=== PATIENT | female | born 1935 | race Caucasian/White ===

== ENCOUNTER → 2017-12-23 | Day surgery (SDC) | payer MEDICARE ==
[2017-12-17 11:19] LABS: BASOPHILS # (AUTO) 0.1 (0.0-0.1); BASOPHILS % 0.7 % (0.0-1.0); EOSINOPHILS # (AUTO) 0.6 (0.0-0.4); EOSINOPHILS % 6.3 % (0.0-6.0); HEMATOCRIT 43.5 % (34.2-44.1); HEMOGLOBIN 14.4 g/dL (12.0-16.0); LYMPHOCYTES # (AUTO) 2.7 (1.0-3.2); LYMPHOCYTES % 27.1 % (18.0-39.1); MEAN CORPUSCULAR HEMOGLOBIN 33.1 pg (28-32); MEAN CORPUSCULAR HGB CONC 33.1 g/dL (31-35); MONOCYTES # (AUTO) 1.1 (0.2-0.8); MONOCYTES % 10.7 % (4.4-11.3); NEUTROPHILS # (AUTO) 5.5 (2.1-6.9); NEUTROPHILS % 54.6 % (38.7-80.0); PLATELET COUNT 273 x10e3/uL (140-360); RED BLOOD COUNT 4.35 x10e6/uL (3.6-5.1); RED CELL DISTRIBUTION WIDTH 12.9 % (11.7-14.4)
[~2017-12-23] MED LIST: ASPIR 8181 MG PO; CALCIUM 1,0001 EACH PO; CLOTRIMAZOLE-BE15 GM TOP; FENTANYL CITRATE/PF 100MCG/2 ML INJ ONE; FLONASE; LASIX20 MG PO; LIDOCAINE HCL 2% LOCAL INJ 5 ML SDV VIAL INJ ONE; MAGNESIUM PO; MIDAZOLAM HCL 2 MG/2 ML VIAL ONE; NIACIN500 M1 PO; PROPOFOL IV EMULSION 10 MG/ML 50 ML VIAL ONE; SYMBICORT 16010.2 GM INH; SYNTHROID100 MCG PO; TOVIAZ4 MG PO; VITAMIN C PO; VITAMIN D31000 UNI1 PO
--- NOTE | 2017-12-23 13:31 | Operative Report ---
DATE OF PROCEDURE: December 23, 2017 REFERRING PHYSICIAN: Dr. Jus Chavira PROCEDURE PERFORMED: Esophagogastroduodenoscopy with esophageal dilatation. INDICATIONS FOR PROCEDURE: Dysphagia. MEDICATION: Patient was done under MAC. Please see anesthesiologist's note. PROCEDURE: With the patient in the left lateral decubitus position, the flexible fiberoptic Olympus gastroscope was introduced into the esophagus under direct visualization without any difficulty. The esophagus appeared to be within normal limits. There was a mild stricture noted at the GE junction that was dilated to size 50-British Cope. The scope was then advanced with ease into the stomach. The mucosa overlying the antrum and the body revealed some diffuse erythema and moderate edema, and biopsies were obtained and sent to stain for H. pylori. The pylorus was of normal contour and shape. It was intubated with ease, and the scope was advanced all the way to the 2nd portion of the duodenum. The scope was then withdrawn slowly. Mucosa overlying the proximal 2nd portion and the duodenal bulb appeared to be within normal limits. The scope was then withdrawn back into the stomach and retroflexed, and the mucosa overlying the fundus and the cardia appeared to be within normal limits. The scope was then straightened out. The scope was subsequently withdrawn. Patient tolerated the procedure well. IMPRESSION 1. Distal esophagitis, mild. 2. 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 3. Gastritis, biopsied. Biopsies sent to stain for H. pylori. PLAN: Follow up histology. Initiate Protonix 40 mg 1 p.o. q.a.m. a.c. Job#: [id number] cc:JUS CHAVIRA DO
== END | disposition home or self-care (01) ==
LOC: OR 09:51
PROVIDERS: ATTEND Internal Medicine Gastroenterology
CPT/HCPCS: 36415; 43239; 43450; 85025; 93005; J2001; J2250

== ENCOUNTER → 2018-01-18 | Outpatient (CLI) | payer MEDICARE ==
[~2018-01-18] MED LIST changes: -FENTANYL CITRATE/PF 100MCG/2 ML INJ ONE; -LIDOCAINE HCL 2% LOCAL INJ 5 ML SDV VIAL INJ ONE; -MIDAZOLAM HCL 2 MG/2 ML VIAL ONE; -PROPOFOL IV EMULSION 10 MG/ML 50 ML VIAL ONE
--- NOTE | 2018-01-18 12:52 | Diagnostic Imaging Report ---
PROCEDURE:US RETROPERITONEAL (KIDNEY). COMPARISON:None. INDICATIONS:UTI TECHNIQUE:Blount scale and color Doppler ultrasound kidney FINDINGS: Right kidney: 8.9 x 5.2 x 5.4 cm. Cortical thickness 1.8 cm Left kidney: 10.2 x 4.9 x 4.6 cm. Cortical thickness 2.1 cm Both kidneys are normal. Survey views of the urinary bladder are normal. Patent ureters. CONCLUSION: Normal renal ultrasound. Dictated by: Shimon Pierre M.D. on 01/18/2018 at 12:54 Electronically approved by: Shimon Pierre M.D. on 01/18/2018 at 12:54
== END ==
LOC: US 12:04
PROVIDERS: ATTEND Urology
DX: N39.0 Urinary tract infection, site not specified (principal)
CPT/HCPCS: 76770

== ENCOUNTER → 2018-03-02 | Outpatient (CLI) | payer MEDICARE ==
--- NOTE | 2018-03-02 12:59 | Diagnostic Imaging Report ---
PROCEDURE:X-RAY MODIFIED BARIUM SWALLOW COMPARISON:None. INDICATIONS:Not provided. DISCUSSION:Fluoroscopic examination was performed in conjunction with speech pathology, during swallowing of a variety of thin and thick liquid consistencies. CONCLUSION:No penetration or aspiration. Please see the report from speech pathology for complete details. Dictated by: Jus Chakraborty M.D. on 03/02/2018 at 13:04 Electronically approved by: Jus Chakraborty M.D. on 03/02/2018 at 13:04
== END ==
LOC: DX 10:43
PROVIDERS: ATTEND Internal Medicine Gastroenterology
DX: R13.10 Dysphagia, unspecified (principal)
CPT/HCPCS: 74230; 92611; G8996; G8997; G8998

== ENCOUNTER → 2018-05-04 | Day surgery (SDC) | payer MEDICARE ==
[2018-05-02 13:09] LABS: BASOPHILS # (AUTO) 0.1 (0.0-0.1); BASOPHILS % 0.7 % (0.0-1.0); EOSINOPHILS # (AUTO) 0.7 (0.0-0.4); EOSINOPHILS % 6.2 % (0.0-6.0); HEMATOCRIT 45.8 % (34.2-44.1); HEMOGLOBIN 14.9 g/dL (12.0-16.0); LYMPHOCYTES # (AUTO) 3.9 (1.0-3.2); LYMPHOCYTES % 37.1 % (18.0-39.1); MEAN CORPUSCULAR HEMOGLOBIN 33.5 pg (28-32); MEAN CORPUSCULAR HGB CONC 32.5 g/dL (31-35); MEAN CORPUSCULAR VOLUME 102.9 fL (81-99); MONOCYTES # (AUTO) 1.3 (0.2-0.8); MONOCYTES % 12.1 % (4.4-11.3); NEUTROPHILS # (AUTO) 4.6 (2.1-6.9); NEUTROPHILS % 43.5 % (38.7-80.0); PLATELET COUNT 239 x10e3/uL (140-360); RED BLOOD COUNT 4.45 x10e6/uL (3.6-5.1); RED CELL DISTRIBUTION WIDTH 13.3 % (11.7-14.4)
[2018-05-02 13:30] LABS: ANION GAP 14.1 mmol/L (8-16); BLOOD UREA NITROGEN 11 mg/dL (7-26); BUN/CREATININE RATIO 13 (6-25); CARBON DIOXIDE 27 mmol/L (22-29); CHLORIDE 102 mmol/L (98-107); CREATININE, SERUM 0.85 mg/dL (0.57-1.11); EST GLOMERULAR FILTRATION RATE > 60 ML/MIN (60-); GLUCOSE 105 mg/dL (74-118); POTASSIUM 4.1 mmol/L (3.5-5.1); SODIUM 139 mmol/L (136-145)
--- NOTE | 2018-05-02 13:36 | Diagnostic Imaging Report ---
EXAMINATION: CHEST 2 VIEWS INDICATION: \S\PER PROTOCOL \S\PRE ADMIT COMPARISON: None FINDINGS: PA and lateral views TUBES and LINES: None. LUNGS: Lungs are well inflated. There is no evidence of pneumonia. Bibasilar subsegmental atelectasis or scarring. Mildly elevated right hemidiaphragm. PLEURA: No pleural effusion or pneumothorax. HEART AND MEDIASTINUM: The cardiomediastinal silhouette is unremarkable. BONES AND SOFT TISSUES: No acute osseous lesion. Soft tissues are unremarkable. UPPER ABDOMEN: No free air under the diaphragm. Right upper quadrant colonic interposition. IMPRESSION: Mild bibasilar subsegmental atelectasis or scarring. No definite focal consolidation. Signed by: Dr. Reyes Alexander MD on 05/02/2018 1:32 PM
[~2018-05-04] MED LIST changes: +CEFTRIAXONE SOD 1 GM VIAL ONE; +CRANBERRY400 MG PO; +IOPAMIDOL 300MG/ML 50ML INFUS..BTL IV ONE; +LIDOCAINE HCL 2% LOCAL INJ 5 ML SDV VIAL INJ ONE; +LOTRISONE CREAM15 GM TOP; +MONISTAT 11 EACH TOP; +MUCINEX DM ER1 EACH PO; +PROPOFOL IV EMULSION 10 MG/ML 20 ML VIAL ONE; +SEVOFLURANE INHAL SOLN 250 ML PEN BTL ONE
[2018-05-04 14:30] VITALS: BP 136/57
--- NOTE | 2018-05-05 12:38 | Operative Report ---
DATE OF PROCEDURE: May 04, 2018 PREOPERATIVE DIAGNOSES 1. Multiple chronic urinary tract infections. 2. Clinical signs and symptoms of interstitial cystitis. POSTOPERATIVE DIAGNOSES 1. Multiple chronic urinary tract infections. 2. Clinical signs and symptoms of interstitial cystitis. PROCEDURES 1. Cystourethroscopy with hydrodistention (entirely separate procedure for clinical symptoms of interstitial cystitis without hematuria). 2. Cystourethroscopy with left ureter catheterization and left retrograde pyelogram (separate procedure for multiple chronic urinary tract infections). 3. Cystourethroscopy with right ureter catheterization and right retrograde pyelogram (separate procedure for multiple chronic urinary tract infections). 4. Supervision of fluoroscopy. 5. Interpretation of retrograde pyelography. ANESTHESIA: General. ESTIMATED BLOOD LOSS: Minimal. COMPLICATIONS: None. INDICATIONS: Ms. Cross is a very pleasant 51-year-old female with multiple chronic urinary tract infections. She and I had a long discussion about alternatives, risks and benefits including doing nothing, cystoscopy, IVP, retrograde pyelograms, and renal ultrasound. She voiced understanding of the options, alternatives, risks and benefits and elected to proceed. PROCEDURE IN DETAIL: After informed consent was obtained, the patient was taken to the operative suite and placed supine in the operating table and underwent general anesthesia by the anesthesia service. She was placed in the dorsal lithotomy position, and sterilely prepped and draped in the standard fashion for cystoscopy. Grade II to III cystocele was noted with no masses. The urethra was catheterized and panendoscopy of the bladder revealed no tumors and no stones. Both ureteral orifices were in their normal anatomic location and position and were seen to efflux clear urine. Hydrodistention was performed, which revealed a capacity of 800 mL, no glomerulations and no Hunner's ulcers. Bilateral retrograde pyelograms were performed, which were normal. The bladder was drained. The patient was awakened from anesthesia and transported to the recovery room in excellent condition. SUPERVISION OF FLUOROSCOPY, INTERPRETATION OF RETROGRADE PYELOGRAPHY: I was present throughout the entire procedure and supervised the use of fluoroscopy. There was no radiologist present at any time during this procedure. Attention was turned toward the left and right ureteral orifices, which were catheterized with an 8-Wallisian cone-tipped catheter in a retrograde fashion. Contrast was injected revealing delicate ureters, delicate pelvicaliceal systems. No evidence of filling defects and no evidence of hydronephrosis. IMPRESSION: Normal retrograde pyelograms. Job#: [id number] TRACEY
== END | disposition home or self-care (01) ==
LOC: OR 10:42
PROVIDERS: ATTEND Urology
DX: N39.0 Urinary tract infection, site not specified (principal); N81.10 Cystocele, unspecified; R35.1 Nocturia; R39.14 Feeling of incomplete bladder emptying; I10 Essential (primary) hypertension; Z01.810 Encounter for preprocedural cardiovascular examination; Z01.812 Encounter for preprocedural laboratory examination; Z01.818 Encounter for other preprocedural examination; Z88.8 Allergy status to other drugs, medicaments and biological substances; Z79.82 Long term (current) use of aspirin; Z68.32 Body mass index [BMI] 32.0-32.9, adult
CPT/HCPCS: 36415; 52005; 71046; 74420; 80048; 85025; 93005; C1758; J0696; J2001; Q9967

== ENCOUNTER → 2018-08-05 | Day surgery (SDC) | payer MEDICARE ==
--- NOTE | 2018-08-01 13:35 | Diagnostic Imaging Report ---
EXAMINATION: PA and lateral views of the chest. COMPARISON: May 02, 2018 CLINICAL HISTORY: Preoperative evaluation for sacrospinous surgery DISCUSSION: Lines/tubes: None. Lungs: The lungs are well inflated and clear. No pneumonia or pulmonary edema. Pleura: No pleural effusion or pneumothorax. Heart and mediastinum: The cardiomediastinal silhouette is normal. Bones and soft tissues: No acute bony abnormalities. IMPRESSION: No acute cardiopulmonary abnormalities. Signed by: Dr. Arthur Mcmanus M.D. on 08/01/2018 1:31 PM
[2018-08-01 13:36] LABS: BASOPHILS # (AUTO) 0.1 (0.0-0.1); BASOPHILS % 0.8 % (0.0-1.0); EOSINOPHILS # (AUTO) 0.2 (0.0-0.4); EOSINOPHILS % 2.9 % (0.0-6.0); HEMATOCRIT 45.5 % (34.2-44.1); HEMOGLOBIN 15.1 g/dL (12.0-16.0); LYMPHOCYTES # (AUTO) 2.6 (1.0-3.2); LYMPHOCYTES % 30.6 % (18.0-39.1); MEAN CORPUSCULAR HEMOGLOBIN 33.6 pg (28-32); MEAN CORPUSCULAR HGB CONC 33.2 g/dL (31-35); MEAN CORPUSCULAR VOLUME 101.3 fL (81-99); MONOCYTES # (AUTO) 0.8 (0.2-0.8); MONOCYTES % 9.8 % (4.4-11.3); NEUTROPHILS # (AUTO) 4.6 (2.1-6.9); NEUTROPHILS % 55.7 % (38.7-80.0); PLATELET COUNT 183 x10e3/uL (140-360); RED BLOOD COUNT 4.49 x10e6/uL (3.6-5.1); RED CELL DISTRIBUTION WIDTH 12.7 % (11.7-14.4)
[~2018-08-05] MED LIST changes: +BUPIVACAINE 0.25%/EPI 30ML SDV INJ ONE; +CEFAZOLIN SOD 2 GM/D5W 50ML 50 ML IV ONE; -CEFTRIAXONE SOD 1 GM VIAL ONE; +DEXAMETHASONE SOD PHOS INJ 4 MG/ML VIAL ONE; +ESTROGENS CONJUGATED VAGINAL CR 45 GM TUBE PV ONE; +FENTANYL CITRATE/PF 100MCG/2 ML INJ ONE; -IOPAMIDOL 300MG/ML 50ML INFUS..BTL IV ONE; +IPRATROPIUM INH; +KETOROLAC TROMETHAMINE 30 MG/ML VIAL ONE; +MEPERIDINE HCL INJ 50 MG/ML INJ ONE; +ONDANSETRON HCL INJ 2 MG/ML VIAL ONE; +RANITIDINE HCL300 MG; +ROCURONIUM BROMIDE 10 MG/ML 5ML VIAL ONE
--- NOTE | 2018-08-05 10:57 | Operative Report ---
DATE OF PROCEDURE: August 05, 2018 PREOPERATIVE DIAGNOSIS: Sacral spinous collapse. POSTOPERATIVE DIAGNOSIS: Sacral spinous collapse. PROCEDURE: Posterior repair of sacral spinous colpopexy. RN TRANSITIONAL: Dr. Deluca COMPLICATIONS: None. ESTIMATED BLOOD LOSS: 20 mL. The patient was taken to the OR and anesthesia was established. Prepped and draped in a sterile fashion, and placed in the dorsal lithotomy position. After examination under anesthesia, a clamp applied at the mucocutaneous junction. The skin in between was cut using curved Garcia scissors. The vagina was dissected off the rectum using Metzenbaum scissors using a push-pull technique and opened in the midline using the same instruments. Two flaps of the vagina was dissected off the underlying muscles using both sharp and blunt dissection. All the way up to the vagina, the was opened all the way up to the vaginal fold. Following this, pelvic floor was pierced with an index finger. The sacral spinous ligament was palpated using the catheter chris. A black Vicryl suture was placed in the sacral spinous ligament on both sides, and the other end was passed into the vaginal vault and elevated on each side and were approximated using Vicryl 2-0. The excess vaginal skin was trimmed off using curved Garcia scissors. The vagina was closed with interlocking stitches of Vicryl 2-0 sutures. The perineum muscles were approximated using Vicryl 2-0. The skin was closed with subcutaneous Vicryl 2-0. The vaginal vault was lifted after tying the sacral spinous ligaments. The sutures were tied, and the vaginal vault was lifted. Vaginal pack and Ramirez catheter was placed inside the bladder for drainage. The patient tolerated the procedure well. Lap and needle counts were correct times 2 at the end of the procedure. Job#: [id number] MN
[2018-08-05 14:00] VITALS: BP 130/71
== END | disposition home or self-care (01) ==
LOC: OR 06:23
PROVIDERS: ATTEND Obstetrics & Gynecology
DX: N99.3 Prolapse of vaginal vault after hysterectomy (principal); N76.1 Subacute and chronic vaginitis; Z01.810 Encounter for preprocedural cardiovascular examination; Z01.812 Encounter for preprocedural laboratory examination; Z01.818 Encounter for other preprocedural examination; Z88.8 Allergy status to other drugs, medicaments and biological substances
CPT/HCPCS: 36415; 57282; 71046; 85025; 93005; J0690; J1100; J1885; J2001; J2175; J2405; J2704

== ENCOUNTER 2018-10-15 10:50 | Inpatient (IN) | payer MEDICARE ==
[~2018-10-15] VITALS: Ht 160 cm; Wt 92.1 kg
[~2018-10-15 10:50] MED LIST changes: -BUPIVACAINE 0.25%/EPI 30ML SDV INJ ONE; -CEFAZOLIN SOD 2 GM/D5W 50ML 50 ML IV ONE; -DEXAMETHASONE SOD PHOS INJ 4 MG/ML VIAL ONE; -ESTROGENS CONJUGATED VAGINAL CR 45 GM TUBE PV ONE; -FENTANYL CITRATE/PF 100MCG/2 ML INJ ONE; -KETOROLAC TROMETHAMINE 30 MG/ML VIAL ONE; -LIDOCAINE HCL 2% LOCAL INJ 5 ML SDV VIAL INJ ONE; -MEPERIDINE HCL INJ 50 MG/ML INJ ONE; -ONDANSETRON HCL INJ 2 MG/ML VIAL ONE; -PROPOFOL IV EMULSION 10 MG/ML 20 ML VIAL ONE; -ROCURONIUM BROMIDE 10 MG/ML 5ML VIAL ONE; -SEVOFLURANE INHAL SOLN 250 ML PEN BTL ONE
--- NOTE | 2018-10-15 11:00 | NUR ---
REC'D PT IN RM 2 VIA EMS; S/P FALL ON A WET SURFACE. PLACED ON THE MONITOR. V.S.S. ABLE TO MAKE NEEDS KNOWN.
[2018-10-15] MEDS ORDERED: ASPIRIN 81 MG CHEW TAB PO ONE (11:15)
[2018-10-15 11:39] LABS: BASOPHILS # (AUTO) 0.1 (0.0-0.1); BASOPHILS % 0.6 % (0.0-1.0); EOSINOPHILS # (AUTO) 0.5 (0.0-0.4); EOSINOPHILS % 5.1 % (0.0-6.0); HEMATOCRIT 41.4 % (34.2-44.1); HEMOGLOBIN 13.9 g/dL (12.0-16.0); LYMPHOCYTES # (AUTO) 2.8 (1.0-3.2); LYMPHOCYTES % 28.7 % (18.0-39.1); MEAN CORPUSCULAR HGB CONC 33.6 g/dL (31-35); MEAN CORPUSCULAR VOLUME 98.3 fL (81-99); MONOCYTES # (AUTO) 1.1 (0.2-0.8); MONOCYTES % 11.8 % (4.4-11.3); NEUTROPHILS # (AUTO) 5.1 (2.1-6.9); NEUTROPHILS % 53.4 % (38.7-80.0); PLATELET COUNT 243 x10e3/uL (140-360); RED BLOOD COUNT 4.21 x10e6/uL (3.6-5.1); RED CELL DISTRIBUTION WIDTH 12.6 % (11.7-14.4)
[2018-10-15 11:50] LABS: INR 0.98; PARTIAL THROMBOPLASTIN TIME 25.7 seconds (23.8-35.5); PROTHROMBIN TIME 13.9 seconds (11.9-14.5)
[2018-10-15 11:56] LABS: ALANINE AMINOTRANSFERASE 8 IU/L (0-55); ALBUMIN 3.1 g/dL (3.5-5.0); ALBUMIN/GLOBULIN RATIO 0.7 (0.8-2.0); ALKALINE PHOSPHATASE 72 IU/L (40-150); ANION GAP 11.9 mmol/L (8-16); BLOOD UREA NITROGEN 11 mg/dL (7-26); BUN/CREATININE RATIO 13 (6-25); CALCIUM 9.4 mg/dL (8.4-10.2); CARBON DIOXIDE 30 mmol/L (22-29); CHLORIDE 101 mmol/L (98-107); CREATINE KINASE 154 IU/L (29-168); CREATININE, SERUM 0.87 mg/dL (0.57-1.11); EST GLOMERULAR FILTRATION RATE > 60 ML/MIN (60-); GLUCOSE 102 mg/dL (74-118); POTASSIUM 3.9 mmol/L (3.5-5.1); SODIUM 139 mmol/L (136-145)
--- NOTE | 2018-10-15 12:14 | Diagnostic Imaging Report ---
Left hip radiographs - 2 views; AP radiograph of the pelvis - 1 view History: Status post fall. Findings: There is a displaced left proximal femoral intertrochanteric fracture. There is approximately 1.7 cm of lateral displacement laterally. No definite extension into the femoral head. The femoro-acetabular alignment is maintained. AP radiograph of the pelvis demonstrates mild degenerative changes of bilateral hip. No evidence of additional acute fracture. No evidence of dislocation. There is diffuse osteopenia. Bowel gas partially obscures visualization of the sacrum. IMPRESSION: Displaced left proximal femoral intertrochanteric fracture. Signed by: Dr. Ty Castle MD on 10/15/2018 12:10 PM
[2018-10-15] MEDS ORDERED: FENTANYL CITRATE/PF 100MCG/2 ML INJ IV NR (12:15)
--- NOTE | 2018-10-15 12:15 | Diagnostic Imaging Report ---
CT CERVICAL SPINE WO HISTORY: Fall COMPARISON: None. TECHNIQUE: CT of the cervical spine without contrast. Sagittal and coronal reformations were created. One or more of the following dose reduction techniques were used: Automated exposure control, adjustment of the mA and/or kV according to patient size, and/or utilization of iterative reconstruction technique. FINDINGS: Mild bone demineralization limits evaluation. Cervical lordosis is slightly straightened. There is no scoliosis or subluxation. No definite acute fracture or compression deformity is seen. The craniocervical junction is intact. No gross spinal canal masses are seen. The paravertebral and paraspinal soft tissues are unremarkable. Mild to moderate multilevel spondylotic changes are most prominent at C5-C6 and C6-C7. Prominent atlantoaxial arthrosis is present as well. Prominent multilevel bilateral facet arthrosis is also present. There is scarring in the lung apices. The thyroid gland is atrophic. Moderate bilateral carotid bulb calcifications are present. Carotid siphon calcification is partially visualized. IMPRESSION: 1. No acute osseous abnormalities. 2. Mild to moderate multilevel spondylosis, most prominent at C5-C6 and C6-C7. Signed by: Dr. Jefry Pisano M.D. on 10/15/2018 12:12 PM
--- NOTE | 2018-10-15 12:27 | Diagnostic Imaging Report ---
EXAMINATION: CHEST SINGLE (NOT PORTABLE) INDICATION: Status post fall, left hip fracture. COMPARISON: Chest radiograph 08/01/2018. FINDINGS: TUBES and LINES: None. LUNGS: Low lung volumes with perihilar interstitial opacity. Mild patchy opacity at the lung bases. No evidence of lobar consolidation. PLEURA: No pleural effusion or pneumothorax. HEART AND MEDIASTINUM: The cardiomediastinal silhouette is unremarkable. BONES AND SOFT TISSUES: No acute osseous abnormality. UPPER ABDOMEN: No free air under the diaphragm. IMPRESSION: Low lung volumes with central vascular congestion. Bilateral interstitial opacities could reflect mild interstitial edema or low lung volumes. Patchy opacities at the lung bases, likely atelectasis. Signed by: Dr. Ty Castle MD on 10/15/2018 12:24 PM
[2018-10-15] MEDS ORDERED: SODIUM CHLORIDE FLUSH 10 ML SYR INJ PRN (13:00)
[2018-10-15] MEDS ORDERED: FUROSEMIDE 20 MG TAB PO PRN (14:00)
[2018-10-15] MEDS ORDERED: BETAMETHASONE/CLOTRIMAZOLE CR 15 GM TUBE TOP PRN (14:00)
[2018-10-15 14:48] LABS: CLARITY,URINE SL CLOUDY (CLEAR); COLOR,URINE YELLOW (YELLOW); LEUKOCYTE ESTERASE ,URINE TRACE (NEGATIVE)
[2018-10-15 14:49] LABS: BILIRUBIN,URINE NEGATIVE (NEGATIVE); KETONES,URINE NEGATIVE (NEGATIVE); NITRITE,URINE POSITIVE (NEGATIVE); PROTEIN,URINE DIPSTICK TRACE (NEGATIVE); URINE UROBILINOGEN 0.2 mg/dL (0.2 - 1)
[2018-10-15 15:09] LABS: BACTERIA,URINE MANY /HPF; EPITHELIAL CELLS,URINE MODERATE /LPF; RBC,URINE 0-5 /HPF (0-5); WBC,URINE (MAN) 21-50 /HPF (0-5)
--- NOTE | 2018-10-15 15:45 | NUR ---
RECEIVED PATIENT FROM ER. PATIENT A/O X3, EVEN RESPIRATIONS ON RA. BOWEL SOUNDS ACTIVE, SKIN INTACT, 2+ PITTING EDEMA BLE. RIGHT AC 20 GAUGE IV SL. BUCKS TRACTION IN PLACE WITH 5 POUNDS. SCD'S ON RIGHT LEG. FAITH IN PLACE WITH CLEAR YELLOW URINE. PATIENT ON COMPLETE BEDREST AT THIS TIME BUT WAS AMBULATORY BEFORE FALL. FAMILY AT BEDSIDE AT THIS TIME. CALL LIGHT IN REACH, SIDE RAILS UP X2, BED IN LOWEST POSITION, WHEELS LOCKED. WILL CONTINUE TO MONITOR.
[2018-10-15 16:18] VITALS: BP 141/63
[2018-10-15 16:42] VITALS: BP 141/63
[2018-10-15] MEDS: BUDESONIDE/FORMOTEROL 160/4.5MCG INHALER INH SCH ×2 (17:00→19:00)
[2018-10-15] MEDS: FAMOTIDINE 20 MG TAB PO SCH (17:43)
[2018-10-15 17:45] VITALS: BP 141/63
[2018-10-15] MEDS: ONDANSETRON HCL INJ 2MG/ML 2ML 2 MG/ML VIAL IV PRN (18:22)
[2018-10-15] MEDS: HYDROMORPHONE 2MG/ML 2 MG/ML ML IV PRN (18:23)
[2018-10-15 20:00] VITALS: BP 119/56
[2018-10-16] VITALS (7 sets, daily range): BP systolic 92–133; BP diastolic 41–68
--- NOTE | 2018-10-16 00:56 | History and Physical ---
CHIEF COMPLAINT: Ms. Genao is a pleasant 83-year-old woman, who presented to the emergency room today after falling down on her side walker at home. HISTORY OF PRESENT ILLNESS: The patient reports that she nearly slipped, she did not pass out or have any other problem, and that her left leg hurt. PAST MEDICAL HISTORY: Significant for hypothyroidism and skin cancer. She had multiple procedures performed at [facility] in 2018, including partial hysterectomy, upper endoscopy, cystoscopy. MEDICATIONS: Her recent home medications have been, aspirin 81 mg daily, Symbicort inhaler, calcium carbonate, vitamin D, Toviaz 4 mg every 24 hours, furosemide 20 mg daily, levothyroxine 100 mcg daily, Monistat cream, niacin, and ranitidine 300 mg daily. PERSONAL AND SOCIAL HISTORY: Negative. FAMILY HISTORY: Not relevant. PHYSICAL EXAMINATION: GENERAL: At this time shows a woman, who is 5 feet 3 inches tall and weighing 165 pounds. VITAL SIGNS: Afebrile, blood pressure 167/70. HEAD, EYES, EARS, NOSE, AND THROAT: Unremarkable. NECK: No jugular venous distention. THORAX: Heart sounds S1 and S2 are equal. No murmurs. LUNGS: Clear. ABDOMEN: Protuberant. EXTREMITIES: No cyanosis, clubbing, or edema. RADIOGRAPHS: EKG shows sinus rhythm of PVCs. X-ray shows displaced left proximal femoral fracture. LABORATORY STUDIES: Unrevealing. ASSESSMENT: 1. Displaced left proximal femoral fracture. 2. Fall. 3. Hypothyroidism. PLAN: The patient will be admitted and have Orthopedic consultation, and further management will be based on clinical course. MD DAVID Joshi/JUVENAL /[id number] cc: Jus Mae DO
[2018-10-16] MEDS: HYDROMORPHONE 2MG/ML 2 MG/ML ML IV PRN ×3 (01:53→17:43)
[2018-10-16] MEDS: LEVOTHYROXINE SODIUM 100 MCG TAB PO SCH (05:17)
--- NOTE | 2018-10-16 05:46 | NUR ---
PT OFFERED WATER SEVERAL TIMES, BUT ONLY DRINK A TOTAL OF 60ML.
[2018-10-16 06:06] LABS: BASOPHILS # (AUTO) 0.1 (0.0-0.1); BASOPHILS % 0.7 % (0.0-1.0); EOSINOPHILS # (AUTO) 0.2 (0.0-0.4); HEMATOCRIT 40.9 % (34.2-44.1); HEMOGLOBIN 13.2 g/dL (12.0-16.0); LYMPHOCYTES # (AUTO) 1.8 (1.0-3.2); LYMPHOCYTES % 19.8 % (18.0-39.1); MEAN CORPUSCULAR HGB CONC 32.3 g/dL (31-35); MEAN CORPUSCULAR VOLUME 102.3 fL (81-99); MONOCYTES # (AUTO) 1.4 (0.2-0.8); MONOCYTES % 15.3 % (4.4-11.3); NEUTROPHILS # (AUTO) 5.5 (2.1-6.9); NEUTROPHILS % 61.7 % (38.7-80.0); PLATELET COUNT 216 x10e3/uL (140-360); RED CELL DISTRIBUTION WIDTH 12.7 % (11.7-14.4)
[2018-10-16 06:17] LABS: INR 1.04; PROTHROMBIN TIME 14.5 seconds (11.9-14.5)
[2018-10-16 06:27] LABS: ANION GAP 12.4 mmol/L (8-16); CALCIUM 8.9 mg/dL (8.4-10.2); CREATININE, SERUM 1.11 mg/dL (0.57-1.11); POTASSIUM 4.4 mmol/L (3.5-5.1)
[2018-10-16] MEDS: BUDESONIDE/FORMOTEROL 160/4.5MCG INHALER INH SCH ×2 (07:00→19:00)
--- NOTE | 2018-10-16 07:33 | NUR ---
Received patient and walking rounds complete. Patient asleep in bed at this time, no signs of distress. Call light in reach, will continue to monitor.
[2018-10-16] MEDS: FAMOTIDINE 20 MG TAB PO SCH ×2 (07:59→17:19)
[2018-10-16] MEDS: CHOLECALCIFEROL 1,000 UNIT TAB PO SCH (07:59)
--- NOTE | 2018-10-16 10:05 | NUR ---
Patient A/O X3, even respirations on 2LNC. Bowel sounds hypoactive, skin intact, 1+ pitting edema in BLE. [place] traction in place on left leg. Right AC 20 gauge IV SL. SCD on right leg. Call light in reach, will continue to monitor.
[2018-10-16] MEDS: ONDANSETRON HCL INJ 2MG/ML 2ML 2 MG/ML VIAL IV PRN ×2 (13:04→17:43)
--- NOTE | 2018-10-16 13:30 | NUR ---
Order for IV fluids due to low urine output.
[2018-10-16] MEDS: SODIUM CHLORIDE 0.9% 1000ML 1,000 ML IV SCH ×3 (14:01→22:55)
--- NOTE | 2018-10-16 17:24 | Consultation ---
DATE OF CONSULTATION: 10/16/2018 CHIEF COMPLAINT: Left hip pain. HISTORY OF PRESENT ILLNESS: This patient is a pleasant 83-year-old female, who suffered a fall yesterday at her home. The patient states that prior to the fall she used a walker to get around. She states that she does not get out much, but is able to get around her home. She states she lives alone. She states she gets assistance from her son and daughter. PAST MEDICAL HISTORY: See H and P. SOCIAL HISTORY: The patient denies smoking or drinking. ALLERGIES: HYDRALAZINE AND INDOMETHACIN. MEDICATIONS: See MAR. PHYSICAL EXAMINATION: GENERAL: This is an elderly female, who is in no apparent distress. She is awake, alert, and oriented appropriately. EXTREMITIES: Her left lower extremity is in Bear's traction. The leg is shortened and internally rotated. She has pain with any attempts of passive range of motion. Distal motor and sensory exams in the left ankle are grossly intact. IMAGING DATA: X-rays of the left hip show a displaced intertrochanteric hip fracture. ASSESSMENT AND PLAN: This is an 83-year-old female with a left hip fracture. The findings and options were discussed with the patient. She was a limited ambulator prior to the fall. She would like to do everything she can to regain her ambulatory status. The risks and benefits of a closed reduction with placement of intramedullary hip screw were discussed. The patient states she understands and wish to proceed. We will get her on the schedule for surgery tomorrow. VANI Watt/JUVENAL /[id number]
[2018-10-17] VITALS: BP 124/61
[2018-10-17 04:00] VITALS: BP 113/54
[2018-10-17] MEDS: SODIUM CHLORIDE 0.9% 1000ML 1,000 ML IV SCH ×4 (05:30→23:24)
[2018-10-17] MEDS: LEVOTHYROXINE SODIUM 100 MCG TAB PO SCH (06:00)
[2018-10-17] MEDS: HYDROMORPHONE 2MG/ML 2 MG/ML ML IV PRN (06:29)
[2018-10-17] MEDS: BUDESONIDE/FORMOTEROL 160/4.5MCG INHALER INH SCH ×2 (07:00→21:00)
[2018-10-17] MEDS: FAMOTIDINE 20 MG TAB PO SCH ×2 (07:30→17:30)
[2018-10-17 08:32] VITALS: BP 102/47
--- NOTE | 2018-10-17 08:48 | NUR ---
PT OPENS EYES TO VOICE, MADE AWARE THAT SHE IS ABOUT TO GO TO SURGERY, PT SHAKES HEAD, PT WHEELED OFF UNIT VIA BED FOR SURGERY, FAMILY AT SIDE
[2018-10-17] MEDS: CHOLECALCIFEROL 1,000 UNIT TAB PO SCH (09:00)
[2018-10-17] MEDS ORDERED: CEFAZOLIN SOD 1 GM/NS 50ML 100 ML IV ONE (10:00)
--- NOTE | 2018-10-17 12:15 | NUR ---
BACK IN ROOM VIA BED, AWAKENS TO VOICE AND IMMEDIATELY CLOSES EYES, DRESSINGS CDI TO LEFT HIP, FAITH TO BSD WITH SCANT AMOUNT OF YELLOW URINE, CALL LIGHT WITHIN REACH, FAMILY AT SIDE
[2018-10-17 12:34] VITALS: BP 128/58
--- NOTE | 2018-10-17 12:59 | NUR ---
PT POST OP AND EXTREMELY DROWSEY DTR AT BEDSIDE EXPLAINED IMM, SIGNED BY DTR AND PLACED IN CHART COPY TO PT IN CARE TRANSITIONS FOLDER
[2018-10-17] MEDS ORDERED: KETOROLAC TROMETHAMINE 30 MG/ML VIAL IV PRN ×2 (13:30→13:45)
[2018-10-17] MEDS ORDERED: DOCUSATE SODIUM 100 MG CAP PO PRN (13:30)
[2018-10-17] MEDS ORDERED: PROMETHAZINE HCL (IM) 25 MG/ML VIAL INJ PRN (13:30)
[2018-10-17] MEDS ORDERED: HYDROCODONE/APAP 7.5MG-325MG 1 EA TAB PO PRN (13:30)
[2018-10-17] MEDS ORDERED: DIPHENHYDRAMINE HCL INJ 50 MG/ML VIAL IM/IV PRN (13:30)
[2018-10-17] MEDS ORDERED: ONDANSETRON HCL INJ 2MG/ML 2ML 2 MG/ML VIAL IV PRN (13:30)
[2018-10-17] MEDS ORDERED: ZOLPIDEM TARTRATE 5 MG TAB PO PRN (13:30)
[2018-10-17] MEDS ORDERED: HYDROCODONE/APAP 5MG-325MG TAB PO PRN (13:30)
[2018-10-17] MEDS ORDERED: ACETAMINOPHEN 650 MG SUPP PR PRN (13:30)
[2018-10-17] MEDS ORDERED: CEFAZOLIN SOD 1 GM/NS 50ML 50 ML IV SCH (14:00)
--- NOTE | 2018-10-17 14:19 | NUR ---
MD BLANKENSHIP INTO SEE PT , ORDERS NOTED, MOO HOSE AND FOOT PUMPS PLACED ON PT , PT AWAKE AT THIS TIME, INTERMITTENT PAIN WITH MOVEMENT, CALL LIGHT WITHIN REACH, FAMILY AT SIDE
--- NOTE | 2018-10-17 14:40 | NUR ---
CASE MANAGEMENT ASSESSMENT [place] Bleacher to bedside to discuss plan of care with patient/family. CM/SW role and care transitions discussed. Anticipated discharge plan discussed along with duration of care. CM/SW discussed patients right to make decisions in care. CM/SW work hours given. Patient lives: alone Admit/Transfer: thru ED Hospital/ER visits since last admit: has been to the hospital for outpatient services; no admission POA/Emergency contact: daughter Doretha Armendariz [phone] Current/Previous Home Health: none PCP/Follow-up Care: Dr. Mae; advised pt to follow up with her MD within 7 days of discharge Current/Previous DME: walker Medications (referring to index hospitalization or the first time you were in the hospital) a. Were changes made in your medications when you were in the hospital on [date of index hospitalization]? n/a b. Did you understand the changes? n/a c. Were you able to obtain your new medications right away? n/a d. Were you able to take your medications like the doctor wanted you to? n/a e. Did the hospital give you an accurate, easy to understand list of medications when you left? n/a Scale of 1-10 how comfortable does patient feel with disease management in outpatient settin Other Services: none Employment Status: retired Areas of Concerns: fall, hip fracture Referral Needs: SNF vs home health Education Needs: safety, post operative instructions, medical management IMM/DARLING given and signed (if applicable): IMM was given Goal for discharge: home with home health vs SNF; pending PT evaluation CM/SW left business card at the bedside with contact information. Name and number was also written on the patients whiteboard. Patient verbalized understanding of discussion. CM will follow-up with ongoing discharge and transition of care needs.
[2018-10-17] MEDS: ACETAMINOPHEN 1000 MG/100 ML IV SCH (15:43)
[2018-10-17 16:45] VITALS: BP 153/79
[2018-10-17] MEDS: ASPIRIN 325 MG TAB PO SCH (17:30)
[2018-10-17] MEDS: CELECOXIB 100 MG CAP PO SCH (17:30)
[2018-10-17] MEDS: CEFAZOLIN SOD 1 GM/NS 50ML 50 ML IV SCH (17:30)
--- NOTE | 2018-10-17 18:05 | Operative Report ---
DATE OF PROCEDURE: 10/17/2018 SURGEON: Jus Roberson MD LOADING UNIT OPERATOR SEATING: Kong Jcakson PA-C PREOPERATIVE DIAGNOSIS: Left hip intertrochanteric fracture. POSTOPERATIVE DIAGNOSIS: Left hip intertrochanteric fracture. PROCEDURE: Placement of left femur intramedullary hip screw. INDICATIONS: The patient is a morbidly obese 83-year-old lady, who fell and sustained a left hip fracture. She previously was a very limited ambulator. Findings and options have been discussed with the patient and her daughter. They would like to proceed with definitive and surgical intervention. The risks and benefits of the procedure have been explained. They state that they understand and wished to proceed. DESCRIPTION OF PROCEDURE: The patient was brought to the operating room and placed under general anesthetic. She received prophylactic antibiotics. She was positioned on the fracture table. She was placed into gentle traction. A C-arm image intensifier was used to assist in obtaining an acceptable reduction. The left hip was then prepped and draped in the sterile manner. A preoperative time-out was performed. A small incision was made proximal to the tip of the greater trochanter. This was carried down to the subcutaneous fat and gluteal fascia. A curved awl was used to introduce a guidepin into the femoral canal. This was advanced all the way down to the knee. This was checked in the AP and lateral planes. Preoperatively, she was noted to have a fairly tight canal. We overreamed to 11.5 mm. There was significant endosteal clatter starting at [address] We elected to place a 9 mm x 340 mm intramedullary hip screw. This was advanced down the canal. A C-arm image intensifier was used to assist in positioning. A guidepin was then placed into the femoral head, this was also checked in the AP and lateral planes. There was some loss of reduction that we spent a fair bit of time to trying to improve. The guidepin was removed and redrilled. There was a valgus deformity that could not seem to be 100% corrected. It was improved and we placed a 95 mm lag screw into the femoral canal. Slight compression was applied. The derotational screw was advanced. The wounds were then all irrigated and closed. Subcuticular Vicryl, Mastisol, and Steri-Strips were used to close the skin. Final x-rays confirmed satisfactory reduction and positioning of the hardware. Estimated blood loss was 50 mL. At the end of the procedure, all needle and sponge counts were correct. Jus Roberson MD DR/JUVENAL /[id number]
[2018-10-17] MEDS ORDERED: FENTANYL CITRATE/PF 100MCG/2 ML INJ ONE (18:43)
[2018-10-17] MEDS ORDERED: LIDOCAINE HCL 2% LOCAL INJ 5 ML SDV VIAL INJ ONE (19:27)
[2018-10-17] MEDS ORDERED: SEVOFLURANE INHAL SOLN 250 ML PEN BTL ONE (19:27)
[2018-10-17] MEDS ORDERED: PROPOFOL IV EMULSION 10 MG/ML 20 ML VIAL ONE (19:27)
[2018-10-17] MEDS ORDERED: PHENYLEPHRINE HCL 1% 10 MG/ML VIAL ONE (19:27)
[2018-10-17] MEDS ORDERED: ONDANSETRON HCL INJ 2MG/ML 2ML 2 MG/ML VIAL ONE (19:27)
[2018-10-17 20:00] VITALS: BP 118/55
[2018-10-18] VITALS (9 sets, daily range): BP systolic 114–170; BP diastolic 53–69
[2018-10-18] MEDS: ACETAMINOPHEN 1000 MG/100 ML IV SCH ×3 (00:10→12:00)
[2018-10-18] MEDS: CEFAZOLIN SOD 1 GM/NS 50ML 50 ML IV SCH ×2 (00:29→09:45)
--- NOTE | 2018-10-18 05:30 | NUR ---
Dressing was soaked with blood. Pressure applied, dressing changed. Ramirez Catheter removed.
[2018-10-18 05:45] LABS: HEMATOCRIT 31.6 % (34.2-44.1); HEMOGLOBIN 10.4 g/dL (12.0-16.0)
[2018-10-18] MEDS: LEVOTHYROXINE SODIUM 100 MCG TAB PO SCH (06:28)
[2018-10-18] MEDS: FAMOTIDINE 20 MG TAB PO SCH ×2 (08:30→17:01)
[2018-10-18] MEDS: BUDESONIDE/FORMOTEROL 160/4.5MCG INHALER INH SCH ×2 (08:40→19:00)
[2018-10-18] MEDS: SODIUM CHLORIDE 0.9% 1000ML 1,000 ML IV SCH ×2 (09:24→19:24)
[2018-10-18] MEDS: ASPIRIN 325 MG TAB PO SCH ×2 (09:45→17:01)
[2018-10-18] MEDS: CELECOXIB 100 MG CAP PO SCH ×2 (09:45→17:01)
[2018-10-18] MEDS: CHOLECALCIFEROL 1,000 UNIT TAB PO SCH (09:45)
--- NOTE | 2018-10-18 13:27 | NUR ---
Received order for SNF eval. Spoke to pt at bedside and provided her with list of in network facilities. Pt chose [facility] as second choice. Choice letter signed and placed in chart. Copy to pt. CM informed Giovany New, liaison with [facility]. He will be by to flower picker clinicals.
[2018-10-18] MEDS ORDERED: ACETAMINOPHEN 1000 MG/100 ML IV PRN (13:30)
--- NOTE | 2018-10-18 13:52 | NUR ---
PT VOIDED VIA BED FERNANDEZ, PT UNABLE TO AMBULATE TO BR AT THIS TIME
--- NOTE | 2018-10-18 15:39 | NUR ---
Received MOT for SNF. [facility] at [address] [place] [address] Dr. Gloria Pretty to attend Admin: Issac Quiroz RM 101 RTF was completed and placed with pt's packet at nurse's station. WYATT Emmanuel was informed of acceptance.
--- NOTE | 2018-10-18 17:20 | NUR ---
LEFT HIP DRESSING SATURATED, AND PARTIALLY REMOVED, NURSE REMOVED DRESSING, STERI STRIPS INTACT TO TOP INCISION, DRESSING APPLIED, SCANT AMOUNT OF DRAINAGE NOTED TO BE TRICKLING FROM BOTTOM INCISION, PRESSURE DRESSING APPLIED, PT REPOSITIONED WITH ASSISTANCE, HOB ELEVATED, PT REQUESTING TO USE BEDPAN AFTER DINNER, EDUCATED TO CALL FOR NURSE OR PCT FOR ASSISTANCE, PT VERBALIZED UNDERSTANDING, CALL LIGHT WITHIN REACH
[2018-10-19] VITALS: BP 142/64
[2018-10-19 04:00] VITALS: BP 141/68
[2018-10-19] MEDS: LEVOTHYROXINE SODIUM 100 MCG TAB PO SCH (05:16)
[2018-10-19] MEDS: SODIUM CHLORIDE 0.9% 1000ML 1,000 ML IV SCH ×2 (05:24→15:24)
[2018-10-19 06:53] LABS: HEMATOCRIT 31.1 % (34.2-44.1); HEMOGLOBIN 10.2 g/dL (12.0-16.0)
[2018-10-19] MEDS: BUDESONIDE/FORMOTEROL 160/4.5MCG INHALER INH SCH (07:00)
--- NOTE | 2018-10-19 07:33 | NUR ---
Rcvd patient in report this am. Patient is asleep in bed at this time. No s/s of distress noted
[2018-10-19 08:09] VITALS: BP 143/66
[2018-10-19] MEDS: FAMOTIDINE 20 MG TAB PO SCH ×2 (09:14→17:04)
[2018-10-19] MEDS: CHOLECALCIFEROL 1,000 UNIT TAB PO SCH (09:14)
[2018-10-19] MEDS: ASPIRIN 325 MG TAB PO SCH ×2 (09:14→17:04)
[2018-10-19] MEDS: CELECOXIB 100 MG CAP PO SCH ×2 (09:14→17:04)
--- NOTE | 2018-10-19 09:30 | NUR ---
IMM EXPLAINED, SIGNED BY PT AND PLACED IN CHART COPY TO PT IN CARE COORDINATION FOLDER
--- NOTE | 2018-10-19 10:28 | NUR ---
Dressing reinforced and changed to the left hip.
[2018-10-19 11:04] VITALS: BP 143/66
[2018-10-19 11:44] VITALS: BP 148/70
[2018-10-19] MEDS ORDERED: ACETAMINOPHEN/CODEINE 300MG - 30MG TAB PO PRN (15:30)
[2018-10-19 15:37] VITALS: BP 137/60
--- NOTE | 2018-10-19 16:06 | NUR ---
Spoke with Dr. Aleman and informed him that pt has been accepted at [facility]. He said ok to transfer today and continue current medications.
--- NOTE | 2018-10-19 16:27 | NUR ---
Report called to [facility] and spoke with [facility] nurse.
--- NOTE | 2018-10-19 17:12 | NUR ---
IV removed at this time. Pressure dressing applied.
--- NOTE | 2018-10-19 17:41 | NUR ---
Patient discharged from facility [facility]. Patient transported via [facility]. Report called earlier to [facility]. No s/s of distress noted
--- NOTE | 2018-10-20 09:11 | Discharge Summary ---
HISTORY: Ms. Genao is a [facility] 83-year-old woman, generally active and healthy, who fell down on her side walk on the and fractured her left hip. HOSPITAL COURSE: Medically, she was felt to be stable and she was seen by Dr. Roberson and taken to the operating room on Wednesday, the , where she had repair of her left hip fracture. The patient has made gradual progress and today is ambulating with physical therapy. She has had no other specific problems, normotensive, afebrile. She is discharged to skilled care today and will work with Physical Therapy there. She will follow up with Dr. Roberson in 1 week. There, she will have daily dressing changes and physical therapy. DISCHARGE DIAGNOSES: 1. Hip fracture. 2. Lung disease, stable. MD DAVID Joshi/JUVENAL /[id number] cc: MD Jus King DO
== END 2018-10-19 17:40 | DRG 482 ==
LOC: ER 10:50 → ERHOLD 13:05 → MED/SURG 15:34
PROVIDERS: ADMIT Internal Medicine Cardiovascular Disease; ATTEND Internal Medicine Cardiovascular Disease
PROC: 0QH706Z Insertion of Intramedullary Internal Fixation Device into Left Upper Femur, Open Approach (ICD-10-PCS; principal; 2018-10-17 09:30)
DX: S72.002A Fracture of unspecified part of neck of left femur, initial encounter for closed fracture (principal); E03.9 Hypothyroidism, unspecified; E66.01 Morbid (severe) obesity due to excess calories; Z68.36 Body mass index [BMI] 36.0-36.9, adult; W18.39XA Other fall on same level, initial encounter; Y93.89 Activity, other specified; Y92.480 Sidewalk as the place of occurrence of the external cause; J44.9 Chronic obstructive pulmonary disease, unspecified
CPT/HCPCS: 36415; 71045; 72125; 76000; 80048; 80053; 81001; 82550; 82553; 82948; 84484; 85014; 85018; 85025; 85610; 85730; 86850; 86900; 87086; 87186; 93005; 94664; 96365; 97139; 99284; C1713; J0690; J2001; J2370; J2405; J7030

== ENCOUNTER 2021-03-20 08:58 | Outpatient (RCR) | payer MEDICARE | END 2021-03-22 | LOC: PT 08:58 | PROVIDERS: ATTEND Specialist | DX: S72.142D Displaced intertrochanteric fracture of left femur, subsequent encounter for closed fracture with routine healing (principal) ==

== ENCOUNTER → 2021-04-22 | Outpatient (RCR) | payer MEDICARE | LOC: PT 03-24 10:18 | PROVIDERS: ATTEND Specialist | DX: S72.142D Displaced intertrochanteric fracture of left femur, subsequent encounter for closed fracture with routine healing (principal) | CPT/HCPCS: 97139 ==

== ENCOUNTER 2021-05-15 08:49 | Outpatient (RCR) | payer MEDICARE | END 2021-05-22 | LOC: PT 08:49 | PROVIDERS: ATTEND Specialist | DX: S72.142D Displaced intertrochanteric fracture of left femur, subsequent encounter for closed fracture with routine healing (principal) ==